=== PATIENT | male | born 1975 | race Caucasian/White ===

== ENCOUNTER → 2017-01-01 | Day surgery (SDC) | payer OTHER ==
[~2017-01-01] VITALS: Ht 170.2 cm; Wt 74.8 kg
--- NOTE | 2017-01-01 13:13 | ED GI/GU/ABDOMINAL COMPLAINT ---
History of Present Illness General Chief Complaint: General Adult Stated Complaint: PT STATES"I HAVE SOMETHING LODGED IN MY CO Source: patient Exam Limitations: no limitations Vital Signs & Intake/Output Vital Signs & Intake/Output Vital Signs Date Time Temp Pulse Resp B/P B/P Pulse O2 O2 Flow FiO2 Mean Ox Delivery Rate 01/01 1512 97.8 71 16 136/82 100 Room Air 01/01 1328 98 Room Air 01/01 1239 98.9 81 18 138/72 98 Room Air Allergies Coded Allergies: NO KNOWN ALLERGIES (05/11/12) Reconcile Medications No Known Home Medications Triage Note: 41 YEAR OLD MALE STATES THAT HE HAS A SEX TOY " ABOUT 13 INCHES LONG LODGED IN HIS RECTUM. INCIDENT HAPPENED THIS AM .DENIES PAIN Triage Nurses Notes Reviewed? yes HPI: Mr. Srinivasan Thibodeaux is an otherwise healthy 41 yo m presenting to the ED for foreign body within the rectum. Patient states he was using a 10-13 inch sex toy for pleasure when he lost control of the end of it and it was completely within his anus. Patient was unable to remove it manually. He denies any pain in his abdomen or rectal pain. He can tough the end of it with the tip of his finger. He has a sensation of wanting to defecate. Patient states been there for 3-4 hours without ability to remove it. Patient denies any abuse at home or feeling unsafe. Past History Travel History Traveled to [place] past 21 day No Medical History Any Pertinent Medical History? 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 No Review of Systems Review of Systems Constitutional: Reports: see HPI. EENTM: Reports: no symptoms. Respiratory: Reports: no symptoms. Cardiovascular: Reports: no symptoms. GI: Reports: no symptoms. Genitourinary: Reports: pain, urgency (urged defecate). Musculoskeletal: Reports: no symptoms. Skin: Reports: no symptoms. Neurological/Psychological: Reports: no symptoms. Hematologic/Endocrine: Reports: no symptoms. Immunologic/Allergic: Reports: no symptoms. All Other Systems: Reviewed and Negative Physical Exam Physical Exam General Appearance: well developed/nourished, no apparent distress, alert, awake , anxious Head: atraumatic, normal appearance Eyes: Bilateral: normal appearance, PERRL, EOMI, normal inspection. Ears, Nose, Throat, Mouth: hearing grossly normal, moist mucous membrane Neck: normal inspection, supple, full range of motion Respiratory: normal breath sounds, chest non-tender, no respiratory distress Cardiovascular: regular rate/rhythm Gastrointestinal: normal bowel sounds, soft, non-tender Rectal: normal inspection, normal rectal tone, palpable soft plastic mass approximately 4- 6 cm within the rectum. Unable to get fingertips arount to gip it and unable remove it Back: normal inspection, normal range of motion Extremities: normal range of motion Neurologic/Psych: no motor/sensory deficits, awake, alert, oriented x 3 Skin: intact, normal color Core Measures ACS in differential dx? No Severe Sepsis Present: No Septic Shock Present: No Progress Differential Diagnosis: bowel obstruction, ischemic bowel, bowel perforation, foreign body impaction Plan of Care: Orders Procedure Date/time Status PROTHROMBIN TIME 01/01 1507 Complete CBC WITHOUT DIFFERENTIAL 01/01 1507 Complete BASIC METABOLIC PANEL 01/01 1507 Active Laboratory Tests 01/01/17 1517: Sodium Pending, Potassium Pending, Chloride Pending, Carbon Dioxide Pending, Anion Gap Pending, BUN Pending, Creatinine Pending, BUN/Creatinine Ratio Pending , Glucose Pending, Calcium Pending, PT 10.2, INR 0.97, CBC w Diff MAN DIFF ORDERED, RBC 5.48, MCV 90.5, MCH 30.3, RDW 13.3, MPV 8.2, Gran % 86.7 H, Lymphocytes % 8.5 L, Monocytes % 4.3, Eosinophils % 0.1, Basophils % 0.4, Absolute Granulocytes 6.4, Absolute Lymphocytes 0.6 L, Absolute Monocytes 0.3, Absolute Eosinophils 0, Absolute Basophils 0, Platelet Estimate ADEQUATE, Normocytic RBCs VERIFIED, Normochromic RBCs VERIFIED, PUBS MCHC 33.5 Patient is generally well-appearing. Endorsing foreign body impaction with sex toy (dildo). Plan to obtain x-ray to assess for the depth of the foreign body and assess for possible free air. Unable to visualize foreign body with x-ray. We will obtain noncontrast CT. CT shows dildo within the rectum approximately 6 cm deep. Attempted to manually remove the field without success. Can palpate the very tip of it but given the depth unable to obtain a firm grasp to manually remove it. Spoke to Dr. Loomis (surgery). Willl obtain preop labs and the patient will go to the OR for an exam under sedation to remove the dildo. (TIFF WHIPPLE,YOEL) Diagnostic Imaging: Viewed by Me: Radiology Read, CT Scan. Discussed w/RAD: Radiology Read, CT Scan. Radiology Impression: No evidence of ileus or obstruction. No radiopaque foreign body identified., 30 cm length, 4 x 4 cm transaxial foreign body seen within the sigmoid colon, extending from above the umbilicus to lie immediately anterior to the coccyx. I estimate that the most inferior aspect of the foreign body is 6 cm above the anus. There is no free fluid, pericolonic wall thickening, pneumatosis , or pneumoperitoneum to suggest perforation at the time of the scan. Initial ED EKG: none Departure Departure Time of Disposition: 1536 Disposition: HOME OR SELF CARE Condition: Stable Clinical Impression Primary Impression: Foreign body in anus and rectum Qualifiers: Encounter type: initial encounter Qualified Code: T18.5XXA - Foreign body in anus and rectum, initial encounter Referrals: ROBERT WHIPPLE,SHILPI Pepoles (PCP/Family) Departure Forms: Customer Survey General Discharge Information Prescriptions: Current Visit Scripts No Known Home Medications OR/GI Note Spoke With: JEFFERSON WHIPPLE,JACE Griffin ED Treatment Decision: SRINIVASAN THIBODEAUX requires urgent operative management or an emergent procedure that cannot be performed in the Emergency Room setting. Transport To: [facility] Attending Observation Observation Discharge: I have reevaluated SRINIVASAN THIBODEAUX on 01/01/17 at 1522. The patient is: (): Stable for discharge (): To be admitted to Nursing Floor (): To be placed in Observation on Nursing Floor (): For transfer to other facility The patient was being observed for As a result of that observation, I have determined .
--- NOTE | 2017-01-01 14:06 | RADIOLOGY REPORT ---
EXAMINATION: XR ABDOMEN CLINICAL INDICATION: Question rectal foreign body COMPARISON: CT scan of May 11, 2012 TECHNIQUE: AP view of the abdomen. FINDINGS: No dilated loops of large or small bowel are evident. There is a large amount of stool seen throughout the right and transverse colon. Gas is seen within the rectum. No radiopaque foreign body is identified. No free intra-abdominal air is appreciated. There is scoliosis of the lumbar spine convex left and of the thoracic spine convex right. No acute fracture or diastases of the pelvis is seen. Sacroiliac joints unremarkable. IMPRESSION: No evidence of ileus or obstruction. No radiopaque foreign body identified.
--- NOTE | 2017-01-01 14:37 | CT SCAN REPORT ---
EXAMINATION: CT ABDOMEN AND PELVIS WITHOUT CONTRAST CLINICAL INFORMATION: Foreign body in rectum. Pain. Tenesmus COMPARISON: Radiographs earlier the same day. Report from CT scan 05/11/2012 TECHNIQUE: Multidetector volumetric imaging was performed from the lung bases through the pubic symphysis. Sagittal and coronal reformatted images were obtained on the technologist workstation. Total exam dose-length product 250 mGy-cm FINDINGS: The lack of intravenous contrast limits evaluation of the solid visceral organs including the liver, spleen, pancreas, and kidneys. LUNG BASES: The visualized lung bases are unremarkable. LIVER, GALLBLADDER, AND BILIARY TREE: Limited non-contrast evaluation is normal. No gross focal hepatic lesion. Normal liver size and contour. No gross biliary ductal dilation. The gallbladder is unremarkable with no evidence of radiopaque gallstones, gallbladder wall thickening, or obvious pericholecystic inflammatory changes. PANCREAS: Limited non-contrast evaluation is normal. No isaura-pancreatic fluid. SPLEEN: There is a punctate calcification adjacent the medial margin of the spleen, question splenic granuloma. Spleen is normal in size. ADRENAL GLANDS: Normal; no adrenal mass. KIDNEYS AND URETERS: Limited non-contrast evaluation is normal. No hydronephrosis, hydroureter, or calculi seen. No perinephric stranding. GASTROINTESTINAL TRACT: Stomach is mildly distended with wall thickening likely due to underdistention. The small bowel is nondilated. There is a moderate volume of stool throughout the proximal colon. The appendix is normal. Consistent with the clinical history, there is a crescent shaped foreign body in the sigmoid colon measuring approximately 30 cm in length. It measures 4 cm anterior to posterior by 4 cm transversely. The inferior aspect of the foreign body is seen immediately anterior to the coccyx. The superior tip of the foreign body is seen in the midline approximately 8 cm above the umbilicus. Most inferior aspect of the foreign body is approximately 6 cm above the anus. There is no perirectal wall thickening seen. No pericolonic fluid or fat stranding. No evidence of pneumatosis or pneumoperitoneum. ABDOMINAL WALL: No hernia seen. LYMPH NODES: No pathologically enlarged lymph nodes in the abdomen or pelvis. VASCULAR: Normal caliber abdominal aorta. BLADDER: Mildly distended. No wall thickening. PELVIC VISCERA: Normal noncontrast appearance of the prostate and seminal vesicles. OSSEOUS STRUCTURES: No acute or suspicious osseous abnormalities. IMPRESSION: 30 cm length, 4 x 4 cm transaxial foreign body seen within the sigmoid colon, extending from above the umbilicus to lie immediately anterior to the coccyx. I estimate that the most inferior aspect of the foreign body is 6 cm above the anus. There is no free fluid, pericolonic wall thickening, pneumatosis, or pneumoperitoneum to suggest perforation at the time of the scan.
[2017-01-01 15:24] LABS: ABSOLUTE BASOPHIL COUNT 0 /CUMM (0.0-0.2); ABSOLUTE EOSINOPHIL COUNT 0 /CUMM (0.0-0.7); ABSOLUTE GRANULOCYTE CT 6.4 /CUMM (1.4-6.5); ABSOLUTE LYMPH COUNT 0.6 /CUMM (1.2-3.4); ABSOLUTE MONOCYTE COUNT 0.3 /CUMM (0.10-0.60); BASOPHIL % 0.4 % (0.0-2.0); EOSINOPHIL % 0.1 % (0-5); GRANULOCYTE % 86.7 % (42.2-75.2); HEMATOCRIT 49.6 % (42-52); MEAN CORPUSCULAR HGB 30.3 PG (27.0-31.0); MEAN CORPUSCULAR HGB CONC 33.5 G/DL (33.0-37.0); MEAN CORPUSCULAR VOLUME 90.5 FL (80.0-94.0); MEAN PLATELET VOLUME 8.2 FL (7.4-10.4); PLATELET COUNT 176 /CUMM (130-400); RBC DISTRIBUTION WIDTH 13.3 % (11.5-14.5); RED BLOOD CELL CT 5.48 /CUMM (4.70-6.10); WHITE BLOOD CELL COUNT 7.4 /CUMM (4.8-10.8)
[2017-01-01 15:30] LABS: PT 10.2 SEC (9.4-12.5)
--- NOTE | 2017-01-01 16:17 | History & Physical Pre-Op ---
LUIS GATES 01/01/17 1617: General Information and HPI MD Statement: I have seen and personally examined MIRIAN DRAKE and documented this H&P. The patient is a 41 year old M who presented with a patient stated chief complaint of RETAINED OBJECT IN RECTUM. Source of Information: patient Exam Limitations: no limitations History of Present Illness: Pt is a 41 you M with no significant medical problems who presented to the ED with c/o a "sex toy" lodged in his rectum, that he was not able to retrieve. Pt states that it was placed this morning and he was unable to reach it. Multiple attempts were made by the ED physician at retrieval, but were unsuccessful. Pt admits there is an urge to have a BM, but denies abdominal or rectal pain this time. Surgical consultation is being requested for recommendations and intervention. 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 Exam & Diagnostic Data Last 24 Hrs of Vital Signs/I&O Vital Signs Date Time Temp Pulse Resp B/P B/P Pulse O2 O2 Flow FiO2 Mean Ox Delivery Rate 01/01 1512 97.8 71 16 136/82 100 Room Air 01/01 1328 98 Room Air 01/01 1239 98.9 81 18 138/72 98 Room Air Intake & Output 01/01 1600 01/01 0800 01/01 0000 Intake Total Output Total Balance Patient 165 lb Weight Physical Exam: General: Pt is awake and alert, in NAD. Cardiac: Regular Pulmonary: CTA bilaterally. Abdomen: Soft, nondistended, nontender. No palpable masses or surgical scars appreciated. Rectal exam deferred due to previous failed attempts at removal. Ext: No edema or calf tenderness. Diagnostic Data Other Results CT of abdomen and pelvis: 30 cm length, 4 x 4 cm transaxial foreign body seen within the sigmoid colon, extending from above the umbilicus to lie immediately anterior to the coccyx. I estimate that the most inferior aspect of the foreign body is 6 cm above the anus. There is no free fluid, pericolonic wall thickening, pneumatosis, or pneumoperitoneum to suggest perforation at the time of the scan. Assessment/Plan Assessment/Plan: Pt is a 41 yo M with a retained rectal foreign body. Unable to be retrieved at bedside. Plan: -Pt will need to go to the OR for exam under anesthesia and removal of FB. -Keep pt npo until surgery. -This was discussed with Dr. Paulino and the patient and they are in agreement. As Ranked By This Provider Problem List: 1. Foreign body in anus and rectum JACE PAULINO MD 01/01/178: Attending MD Review Statement Attending Statement Attending MD Statement: examined this patient, discuss w/resident/PA/OUTSIDE INDUSTRIAL SALES REPRESENTATIVE, reviewed images Attending Assessment/Plan: healthy 41yo male with rectal foreign body not seen on plain x-ray. CT scan shows a 30 cm double ended phallic structure in the sigmoid colon. It has been retained for 8 hours, he has no abdominal pain and no abdominal tenderness. There is no clinical or radiographic evidence of perforation. Plan will be to go forth with exam under general anesthesia and manual trans anal extraction. Patient is informed the risks operation including anal trauma. He understands that if it cannot be extracted manually transanally, laparotomy will be required. He agrees to proceed
[2017-01-01 20:19] VITALS: BP 137/83
--- NOTE | 2017-01-01 22:09 | Operative Report ---
Operative/Inv Procedure Report Surgery Date: 01/01/17 Name of Procedure: Exam under anesthesia with extraction of rectal foreign body Pre-Operative Diagnosis: Rectal foreign body Post-Operative Diagnosis: Same Estimated Blood Loss: scant Surgeon/Bogger Operator: Sonido Loomis M.D. Anesthesia: general endotracheal tube Specimens: Dildo, double-ended Operative Indication: See H&P Operative/Procedure Note Note: Patient was brought to the operative laid supine. Gen. anesthesia was obtained his placed in lithotomy position. Digital rectal examination revealed a patulous anus. Deep in the upper rectum there was a soft foreign body just at the tips of my fingers. It could not be grasped. With multiple attempts of visualization through a variety of retractors, it was determined that grasping it under direct vision would not be possible. Bimanual examination with extraction was then performed. Multiple attempts were unsuccessful. Finally I could get my fingers around his left costal margin, around the tip of the contralateral end. By doing this combined with manual rectal exploration I was able to deliver it to the lower rectum enough such that I could grab it and extract it. The operation was then concluded. CC: ROBERT WHIPPLE,SHILPI Peoples
== END ==
LOC: ERH 12:30 → STS 20:29
PROVIDERS: Emergency Medicine
DX: T18.5XXA Foreign body in anus and rectum, initial encounter (principal); X58.XXXA Exposure to other specified factors, initial encounter
CPT/HCPCS: 74000; 74176; C9399; J1170; J2250; J3010